=== PATIENT | female | born 1980 | race Two or more races ===

== ENCOUNTER 2023-12-11 14:53 | Emergency (ER) | payer OTHER ==
[~2023-12-11] VITALS: Ht 160 cm; Wt 86.2 kg
[2023-12-11 18:51] LABS: HEMATOCRIT 39.2 % (36.0-45.00); MEAN CELL VOLUME 90.5 fL (80.00-100.00); MEAN CORPUSCULAR HEMOGLOBIN 30.1 pg (27.00-32.0); MEAN CORPUSCULAR HGB CONC 33.2 g/dl (32.0-36.0); PLATELET COUNT 325 K/uL (150-450); RED BLOOD COUNT 4.33 M/uL (4.00-6.00); RED CELL DISTRIBUTION WIDTH 14.5 % (11.5-14.5)
== END 2023-12-11 19:34 | disposition home or self-care (01) ==
LOC: ER 14:54
PROVIDERS: General Practice
DX: J10.1 Influenza due to other identified influenza virus with other respiratory manifestations (principal); R05.9 Cough, unspecified; Z20.822 Contact with and (suspected) exposure to COVID-19

== ENCOUNTER 2025-09-08 09:37 | Emergency (ER) | payer OTHER ==
[~2025-09-08] VITALS: Ht 160 cm; Wt 86.2 kg
[2025-09-08 10:11] VITALS: BP 104/72; O2SAT 100
[2025-09-08] MEDS ORDERED: COZAAR50 MG PO (10:11)
[2025-09-08] MEDS ORDERED: DEXAMETHASONE 4 MG TABLET PO ONE (10:45)
[2025-09-08] MEDS ORDERED: KETOROLAC TROMETHAMINE 30 MG VIAL IV ONE (10:45)
[2025-09-08] MEDS ORDERED: TAMSULOSIN HCL 0.4 MG CAP PO ONE ×2 (10:45→12:06)
[2025-09-08] MEDS ORDERED: 0.9 % SODIUM CHLORIDE 1,000 ML IV SCH (11:00)
[2025-09-08] MEDS ORDERED: KETOROLAC TROMETHAMINE 30 MG VIAL ONE (12:06)
[2025-09-08] MEDS ORDERED: DEXAMETHASONE SODIUM PHOSPHATE 4 MG/ML VIAL ONE (12:06)
[2025-09-08 12:57] LABS: BASO % 0.4 % (0.1-1.2); EOS # 0.40 (0.04-0.54); EOS % 4.2 % (0.7-7.0); LYMPH # 2.87 (1.18-3.74); LYMPH % 30.0 % (19.3-53.1); MEAN PLATELET VOLUME 9.70 fl (9.4-12.4); MONO # 0.62 (0.24-0.82); MONO % 6.5 % (4.7-12.5); NEUT # 5.63 (1.56-6.13); NEUT % 58.7 % (34.0-71.1); RED CELL DISTRIBUTION WIDTH 13.0 % (11.6-14.4)
[2025-09-08] MEDS ORDERED: DEXAMETHASONE SODIUM PHOSPHATE 4 MG/ML VIAL IV ONE (13:00)
[2025-09-08 13:10] LABS: URINE APPEARANCE Cloudy; URINE BILIRRUBIN Negative (NEGATIVE); URINE BLOOD Negative; URINE COLOR Yellow; URINE GLUCOSE Negative (NEGATIVE); URINE KETONE Trace (NEGATIVE); URINE LEUKOCYTE Large; URINE NITRATE Negative; URINE PROTEIN Trace (NEGATIVE); URINE UROBILINOGEN 1.0 E.U./dl
[2025-09-08 13:11] LABS: URINE BACTERIA 3431.9 uL (0.0-1933); URINE EPITHELIAL CELLS 61.6 uL (0.0-38.8); URINE RBC 6.8 uL (0.0-20.8); URINE WBC 285.8 uL (0.0-23.2)
[2025-09-08] MEDS ORDERED: MORPHINE SULFATE 4 MG/ML CARTRIDGE IV ONE (13:30)
[2025-09-08 13:53] LABS: URINE CAST 0.29 uL (0.0-1.40)
[2025-09-08 14:24] LABS: ALT/SGPT 30.0 U/L (12-78); AST/SGOT 29.0 U/L (15-37); BILIRUBIN TOTAL 0.27 mg/dL (0.3-1.2); BUN CREA RATIO 30.0 (7.0-25.0); CREATININE SERUM 0.7 mg/dL (0.55-1.02); GFR 90.49; GLOBULINA 3.9 G/DL (2.4-3.5); GLUCOSE FASTING 81.0 mg/dL (65-100); OSMOLALITY SERUM 287.0 MOSM/KG (275-295)
[2025-09-08] MEDS ORDERED: CEFTRIAXONE SODIUM 2,000 MG VIAL IV ONE (15:15)
[2025-09-08] MEDS ORDERED: CEFTRIAXONE SODIUM 2,000 MG VIAL ONE (15:38)
== END 2025-09-08 18:13 | disposition home or self-care (01) ==
LOC: ER 09:37
PROVIDERS: General Practice
DX: N39.0 Urinary tract infection, site not specified (principal)

== ENCOUNTER 2025-09-11 09:03 | Emergency (ER) | payer OTHER ==
[~2025-09-11] VITALS: Ht 160 cm; Wt 86.2 kg
[~2025-09-11 09:03] MED LIST: COZAAR50 MG PO
[2025-09-11] MEDS ORDERED: ACETAMINOPHEN 500 MG GEL..CAP PO ONE ×2 (11:20→11:30)
[2025-09-11] MEDS ORDERED: KETOROLAC TROMETHAMINE 60 MG VIAL IM ONE ×2 (11:20→11:30)
[2025-09-11] MEDS ORDERED: DEXAMETHASONE SODIUM PHOSPHATE 4 MG/ML VIAL ONE (11:20)
[2025-09-11] MEDS ORDERED: DEXAMETHASONE SODIUM PHOSPHATE 4 MG/ML VIAL IM ONE (11:30)
[2025-09-11 11:47] LABS: BASO % 0.4 % (0.1-1.2); EOS # 0.43 (0.04-0.54); EOS % 3.6 % (0.7-7.0); LYMPH # 3.42 (1.18-3.74); LYMPH % 28.8 % (19.3-53.1); MEAN PLATELET VOLUME 9.90 fl (9.4-12.4); MONO # 0.67 (0.24-0.82); MONO % 5.6 % (4.7-12.5); NEUT # 7.28 (1.56-6.13); NEUT % 61.3 % (34.0-71.1); RED CELL DISTRIBUTION WIDTH 13.1 % (11.6-14.4)
[2025-09-11 12:32] LABS: ALT/SGPT 19.0 U/L (12-78); AST/SGOT 15.0 U/L (15-37); BILIRUBIN TOTAL 0.34 mg/dL (0.3-1.2); BUN CREA RATIO 18.0 (7.0-25.0); CREATININE SERUM 0.71 mg/dL (0.55-1.02); GFR 89.02; GLOBULINA 4.3 G/DL (2.4-3.5); GLUCOSE FASTING 87.0 mg/dL (65-100); OSMOLALITY SERUM 286.0 MOSM/KG (275-295)
[2025-09-11] MEDS ORDERED: MEDROLPACK PO (13:08)
[2025-09-11] MEDS ORDERED: NAPR500T14 PO (13:08)
== END 2025-09-11 14:02 | disposition home or self-care (01) ==
LOC: ER 09:04
DX: M51.16 Intervertebral disc disorders with radiculopathy, lumbar region (principal)